=== PATIENT | male | born 1940 | race Caucasian/White ===

== ENCOUNTER 2016-10-23 07:00 | Observation (INO) | payer OTHER ==
--- NOTE | 2016-10-16 10:59 | GHP ---
[f rep st] HISTORY AND PHYSICAL DATE OF ADMISSION: 10/23/2016 HISTORY OF PRESENT ILLNESS: The patient returns to our office for further discussion regarding pain in his right inguinal region. The patient reports he lifted something heavy, felt a strain, and now his right inguinal area is sore to the touch. The pain has been resolving. He is noticing a palpable mass. The patient has a history of bilateral inguinal hernia repair in the remote history, and 2 years ago, underwent an open right inguinal hernia repair. ALLERGIES: No known drug allergies. PAST MEDICAL HISTORY: Coronary artery disease, hyperlipidemia, fatigue, shingles, tremor. PAST SURGICAL HISTORY: Cardiac catheterization, inguinal hernia repair, penile implant for Peyronie's disease, prostate surgery, shoulder surgery, skin tumor removal, arthroscopic knee surgery bilateral. MEDICATIONS: Aspirin, Crestor, Diovan, metoprolol, Plavix, Proctozone rectal cream. SOCIAL HISTORY: The patient is . Four kids. Nonsmoker. REVIEW OF SYSTEMS: He had a negative 10-point review of systems. PHYSICAL EXAM: GENERAL: Patient is an elderly male, in no apparent distress. HEAD AND NECK: Normocephalic, atraumatic. No masses. CHEST: CTA bilaterally. HEART: Regular rhythm, rate. ABDOMEN: Small right inguinal hernia, scrotal implant. EXTREMITIES: No lower extremity edema. Normal dorsalis pedis pulses to palpation. RADIOLOGY: CT of the abdomen and pelvis done at [facility] demonstrates a right direct inguinal hernia containing fat and a 2.3 cm fluid density structure that appears to be a small portion of herniated bladder. Nonspecific 6 mm left lower lobe nodule. Recommend followup CT scan in 36 months, bilateral renal cysts. IMPRESSION: Recurrent right inguinal hernia. RECOMMENDATION: Open right inguinal hernia repair was discussed with the patient in detail. Patient saw Dr. Eller. Risks reviewed include recurrent hernia, bleeding, hematoma, nerve injury. The patient wants to proceed with scheduling surgery for October 23, 2016. Patient received cardiac clearance from Dr. Castro. /[id number]/MODL MTDD
[~2016-10-23 07:00] MED LIST: ceFAZolin 2 GM/DEXTROSE 100 ML IV ONE
[2016-10-23] MEDS ORDERED: LIDOCAINE 1% 5 ML SDV ONE (07:31)
[2016-10-23] MEDS ORDERED: LR 1,000 ML IV ONE (08:04)
[2016-10-23] MEDS ORDERED: LIDOCAINE 1% 5 ML SDV ID PRN (08:04)
[2016-10-23 08:05] LABS: ADD DIFF? NO; ADD MORPH? NO; ADD SCAN? NO; ATYPICAL LYMPHOCYTE FLAG 30 (0-99); FRAGMENT RBC FLAG 0 (0-99); HEMATOCRIT 45.7 % (40.0-51.0); LEFT SHIFT FLG 0 (0-99); LIPEMIA HEMOLYSIS FLAG 90 (0-99); MEAN CELL HEMOGLOBIN 31.6 pg (27.9-34.1); MEAN CELL VOLUME 90.3 fL (81.5-99.8); MEAN PLATELET VOLUME 10.1 fL (8.7-11.7); PLATELET CLUMPS FLAG 0 (0-99); PLATELET COUNT 171 10^3/uL (150-400); RED BLOOD CELL COUNT 5.06 10^6/uL (4.40-6.38); RED CELL DISTRIBUTION WIDTH 13.1 % (11.5-15.2)
[2016-10-23] MEDS ORDERED: BUPIVACAINE 0.5% 30 ML SDV ONE ×2 (08:11→08:34)
[2016-10-23] MEDS ORDERED: SODIUM BICARBONATE 10 MEQ/10 ML SYR IVP ONE (08:34)
[2016-10-23] MEDS ORDERED: LIDOCAINE 1% 30 ML SDV ONE (08:35)
[2016-10-23] MEDS ORDERED: PROPOFOL/EMULSION 500 MG/50 ML BOTTLE IV ONE (08:38)
[2016-10-23] MEDS ORDERED: epHEDrine SULFATE 10 MG/ML SYR ONE (09:12)
[2016-10-23] MEDS ORDERED: THROMBIN (RECOMBINANT) 5,000 UNIT VIAL TP ONE (09:41)
[2016-10-23] MEDS ORDERED: PROPOFOL 200 MG/20 ML VIAL ONE (09:57)
[2016-10-23] MEDS ORDERED: HYDROCODONE/APAP 5/325 TAB ONE (12:35)
[2016-10-23] MEDS ORDERED: HYDROmorphONE/DILAUDID 1 MG/ML SYR IVP PRN (14:14)
[2016-10-23] MEDS ORDERED: ONDANSETRON 4 MG/2 ML VIAL IVP PRN (14:14)
[2016-10-23] MEDS ORDERED: ACETAMINOPHEN 325 MG TAB PO PRN (14:14)
[2016-10-23] MEDS ORDERED: D5W 1/2 NS W/ 20 KCl/L 1,000 ML IV SCH (14:15)
[2016-10-23] MEDS ORDERED: fentaNYL 100 MCG/2 ML INJ ONE (15:52)
[2016-10-23] MEDS: HYDROCODONE/APAP 5/325 TAB PO PRN (21:05)
[2016-10-23] MEDS ORDERED: POLYETHYLENE GLYCOL 3350 17 GM PKT PO ONE (21:30)
[2016-10-24] MEDS: HYDROCODONE/APAP 5/325 TAB PO PRN ×2 (01:18→09:38)
[2016-10-24 05:46] LABS: HEMATOCRIT 37.5 % (40.0-51.0); HEMOGLOBIN 13.2 g/dL (13.7-17.5)
[2016-10-24] MEDS ORDERED: POLYETHYLENE GLYCOL 3350 17 GM PKT PO PRN (06:30)
[2016-10-24] MEDS ORDERED: LACTULOSE 20 GM/30 ML UDCUP PO PRN (06:30)
[2016-10-24] MEDS ORDERED: MAGNESIUM HYDROXIDE 30 ML UDCUP PO PRN (06:30)
[2016-10-24] MEDS ORDERED: BISACODYL 10 MG SUPP PR PRN (06:30)
[2016-10-24 08:05] VITALS: RESP 16; TEMP 98.2; O2SAT 94
--- NOTE | 2016-10-24 08:12 | SOAPPROG ---
[id number] 08:11 10/25/16 08:05 Objective: Vital Signs Temp Pulse Resp BP Pulse Ox 36.8 C 63 16 107/60 94 10/24/16 08:00 10/24/16 08:00 10/24/16 08:00 10/24/16 08:00 10/24/16 08:00 Laboratory Results 10/24/16 05:08 10/23/16 10/24/16 10/25/16 05:59 05:59 05:59 Intake Total 2400 Output Total 2460 200 Balance -60 -200 ICD10 Worksheet Patient Problems: Problems Problem Status Diagnosed Internal bleeding hemorrhoids Acute
[2016-10-24] MEDS ORDERED: SENNOSIDES/DOCUSATE SODIUM TAB PO SCH (09:00)
[2016-10-24 11:27] VITALS: BP 102/62; PULSE 68
--- NOTE | 2016-10-31 14:07 | GDS ---
[f rep st] DISCHARGE SUMMARY DISCHARGE DIAGNOSES: 1. Recurrent right inguinal hernia with pain. 2. Postoperative swelling. 3. Urinary retention. OTHER DIAGNOSES: Include history of coronary artery disease, hyperlipidemia, fatigue, shingles, trem or, cardiac catheterization, previous inguinal hernia repairs, prostate surgery, shoulder surgery, sk in excision, bilateral arthroscopic knee surgery, penile implant for Peyronie disease. CONSULTATION: Phone consultation with Dr. Gerard Navarro, the patient's urologist. HOSPITAL COURSE: The patient is a 75-year-old male with a symptomatic recurrent right inguinal herni a. He underwent open repair with Dr. Jeffy Eller. Mesh was used. The procedure was uncomplicated and he tolerated it well. In the recovery room, the patient developed some postoperative swelling at the site of his repair. O f note, he was on Plavix, and so there was concern for bleeding. He also had some urinary retention. It was decided to keep the patient overnight for observation. Dr. Gerard Navarro was consulted secondar y to his implant, and ultimately a 14-Greek catheter was placed easily bedside without event. Patient's swelling remained stable. His Ramey catheter was removed, at which time he was able to voi d spontaneously several times. He was eager to go home. DISCHARGE INSTRUCTIONS: The patient was discharged to home in stable condition with plans for outpat ient followup. All limitations were discussed prior to him going home. He was given permission to r estart his Plavix. /[id number]/MODL
--- NOTE | 2016-11-06 14:27 | GOP ---
[f rep st] OPERATIVE REPORT DATE OF OPERATION: 10/23/2016 SURGEON: Jeffy Eller MD ANESTHESIOLOGIST: Abel Ace MD PREOPERATIVE DIAGNOSIS: Recurrent right inguinal hernia. POSTOPERATIVE DIAGNOSIS: Recurrent right inguinal hernia. PROCEDURE PERFORMED: Open repair of recurrent right inguinal hernia. FINDINGS: The patient was found to have parapubic recurrent 2 cm and 1 cm defects. DESCRIPTION OF PROCEDURE: The patient was taken to the operating room where he received satisfactory spinal anesthesia by Dr. Ace. He was placed in supine position, prepped and draped in the usual s terile fashion. A transverse incision was made through his previous old scar. Careful dissection ex tended down through the subcutaneous tissue and down through the external oblique fascia. This was o pened through the external ring. Proximal and distal flaps were created. Cord was mobilized from th e floor of the canal. Dissection was somewhat difficult, having had a couple of surgeries in this gr oin before. Medially in the floor of the canal, defects were encountered. These were medial to the actual floor of the inguinal canal and sort of a parapubic area. Both areas were dissected free. A small 1 cm defect with a small hernia sac and then a somewhat larger 2 cm area with a much larger rec urrent hernia sac were identified. These were dissected free. The contents were reduced. The defec ts were then closed with interrupted 0 Surgilon [id number] sutures. The wound was infiltrated w ith 0.5% Marcaine. The inguinal floor was then reinforced with a ProGrip polyester mesh, securing th e mesh down to the pubic tubercle, to the internal oblique fashion, and to the shelving edge of the i nguinal ligament. The patch which was slit laterally to pass some around the cord structures, and th en it was all anchored in place with interrupted 0 Surgilon. The wounds were infiltrated with 0.5% M arcaine. The cord and nerve were replaced in their anatomic positions. The external oblique was nohelia sed with a running 2-0 Vicryl suture, the subcu with 3-0 Vicryl, and the skin with a 4-0 Monocryl sub cuticular stitch. He tolerated the procedure quite well. Blood loss was less than 20 cc. There wer e no complications. ASSESSMENT: Jenn Bertrand PA-C /[id number]/[facility] [place]
== END 2016-10-24 14:40 | disposition home or self-care (01) ==
LOC: FSGY 07:00 → F3E 18:18
PROVIDERS: ADMIT Surgery; ATTEND Surgery
PROC: 0YU50JZ Supplement Right Inguinal Region with Synthetic Substitute, Open Approach (ICD-10-PCS; principal; 2016-10-23 09:00)
DX: K40.31 Unilateral inguinal hernia, with obstruction, without gangrene, recurrent (principal); I25.10 Atherosclerotic heart disease of native coronary artery without angina pectoris; I10 Essential (primary) hypertension; G47.33 Obstructive sleep apnea (adult) (pediatric)
CPT/HCPCS: 49520; 88302; C1781; G0378; J0690; J2704; J3010

== ENCOUNTER 2016-12-08 10:58 | Observation (INO) | payer OTHER ==
[2016-12-08] MEDS ORDERED: LR 1,000 ML IV ONE (11:55)
[2016-12-08] MEDS ORDERED: LIDOCAINE 1% 5 ML SDV ID PRN (11:55)
[2016-12-08] MEDS ORDERED: ceFAZolin 2 GM/DEXTROSE 100 ML IV ONE (12:00)
[2016-12-08] MEDS ORDERED: BUPIVACAINE 0.5% 30 ML SDV ONE (12:44)
[2016-12-08] MEDS ORDERED: SKIN ADHESIVE (DERMABOND) 1 EACH TP ONE (12:44)
[2016-12-08] MEDS ORDERED: ONDANSETRON DISINTEGRATING 4 MG TAB PO PRN (12:57)
[2016-12-08] MEDS ORDERED: PROMETHAZINE HCL 25 MG SUPPR PR PRN (12:57)
[2016-12-08] MEDS ORDERED: CYCLOBENZAPRINE 10 MG TAB PO PRN (12:57)
[2016-12-08] MEDS ORDERED: diphenhydrAMINE 25 MG CAP PO PRN (12:57)
[2016-12-08] MEDS ORDERED: ONDANSETRON 4 MG/2 ML VIAL IVP PRN (12:57)
[2016-12-08] MEDS ORDERED: METOCLOPRAMIDE 10 MG/2 ML VIAL IVP PRN (12:57)
[2016-12-08] MEDS ORDERED: oxyCODONE IR 5 MG TAB PO PRN (12:57)
[2016-12-08] MEDS ORDERED: TEMAZEPAM 15 MG CAP PO PRN (12:57)
[2016-12-08] MEDS ORDERED: DIPHENOXYLATE/ATROPINE LOMOTIL 1 TAB PO PRN (12:57)
[2016-12-08] MEDS ORDERED: LR 1,000 ML IV SCH (13:00)
[2016-12-08] MEDS ORDERED: fentaNYL 100 MCG/2 ML INJ ONE ×2 (13:01→15:07)
[2016-12-08] MEDS ORDERED: PROPOFOL/EMULSION 500 MG/50 ML BOTTLE IV ONE (13:01)
[2016-12-08] MEDS ORDERED: ROPIVACAINE HCL 150 MG/30 ML INJ ONE (13:01)
[2016-12-08] MEDS ORDERED: LIDOCAINE 2% 5 ML SDV ONE (13:07)
[2016-12-08] MEDS ORDERED: ceFAZolin 1 GM VIAL ONE (13:54)
[2016-12-08] MEDS ORDERED: DEXAMETHASONE 4 MG/ML VIAL ONE ×2 (14:08)
[2016-12-08] MEDS ORDERED: KETOROLAC 30 MG/1 ML SDV ONE (14:15)
--- NOTE | 2016-12-08 16:31 | GOP ---
[f rep st] OPERATIVE REPORT DATE OF OPERATION: 12/08/2016 SURGEON: Thee Peoples MD INS[employer]ANCE [employer]ENSE PARALEGAL: Randolph Fernandes SA. ANESTHESIA: Spinal and popliteal block with mild sedation. PREOPERATIVE DIAGNOSIS: Right crossover toe deformity, hallux valgus interphalangeus, hammertoes, a nd metatarsalgia. POSTOPERATIVE DIAGNOSIS: Right crossover toe deformity, hallux valgus interphalangeus, hammertoes, and metatarsalgia. PROCEDURE PERFORMED: 1. Right great toe Marcus osteotomy. 2. Right 2, 3, 4, and 5 hammertoe corrections. 3. Right 2nd and 3rd shortening metatarsal osteotomies. 4. Right 2nd and 3rd metatarsal capsulotomies. FINDINGS: SPECIMENS: None. ESTIMATED BLOOD LOSS: 20 mL. INDICATIONS: A 76-year-old male with symptomatic crossover toe deformity and previous forefoot surg olya, experiencing pain and rubbing in shoe wear. He had failed conservative management and elected to proceed with operative treatment. Informed consent obtained and all questions answered. He was marked preoperatively. DESCRIPTION OF PROCEDURE: He was consented in the clinic. We discussed risks of nonunion, malunion , under correction, over correction, recurrence of deformity, new deformity, continued pain, infecti on, wound complications, and he elected to proceed. Informed was obtained. All questions were answ ered. He was marked preoperatively. He was taken to the operative suite. Popliteal block and spinal anesthesia were administered per An esthesia. He was given 2 g of Ancef. Additionally, he was given another gram before the start of t he case as the initial dose of Ancef had been greater than 30 minutes due to the 2 blocks. The time -out was performed verifying the site, side, and location, with agreement of the team. He was steri mya prepped and draped in the normal fashion. His tourniquet was inflated to 250 mmHg with the Esm arch. Incision was made medially over the hallux and dissected down to this excising only a small p ortion of the capsule. I then exposed the 2nd and 3rd metatarsal heads through the old incision and had to work laterally for the 3rd metatarsal head. Lengthened the extensor tendons and performed c apsulotomies of 2 and 3. I exposed the 2nd mallet toe as well as the 4th hammertoe sharply. I then used a sagittal saw to do the mallet toe correction on 2 and then the hammertoe corrections on 3, 4 , and 5. I then marked my Marcus osteotomy site and used the saw to remove a small wedge of bone. Cl osed this site medially and then placed 2 screws across this. The small gap that was still present more dorsally was filled with some of the residual bone from the wedge. Overall, I did feel a good correction was obtained and this was confirmed radiographically. I then made an osteotomy of the 2n d metatarsal head and rotated this back as I felt this was malrotated on the preoperative x-ray. I then performed a shortening osteotomy in a Caio type fashion on 3. I then held these in compression , held these with 2 screws each, snap-off ready. I then pinned all the hammertoes antegrade followe d by retrograde starting with the 2nd one and checked this radiographically and clinically and liked the correction. Tourniquet was released. The wounds were thoroughly irrigated. The toes did have good capillary refill. I closed this with 0 Vicryl in the capsule of the great toe to achieve dioni tional correction, then 2-0 Vicryl and 3-0 Vicryl in the wounds and then 3-0 and 4-0 nylon as well a s a Monocryl medially, Dermabond. He was placed in a sterile dressing and taken to PACU in stable c ondition. IMPLANTS: Two Arthrex 2.5 headless compression screws and 4 snap-off screws. COMPLICATIONS: None. DRAINS: None. CONDITION: Stable. /[id number]/MODL
[2016-12-08] MEDS: ACETAMINOPHEN 325 MG TAB PO SCH (18:12)
[2016-12-08] MEDS: FAMOTIDINE 20 MG TAB PO SCH (20:55)
[2016-12-08] MEDS: ROSUVASTATIN CALCIUM 40 MG TAB PO SCH ×2 (20:56→20:58)
[2016-12-08] MEDS ORDERED: ASPIRIN 81 MG CHEWABLE TAB PO SCH (21:00)
[2016-12-08] MEDS ORDERED: METOPROLOL SUCCINATE XR 25 MG TAB PO SCH (21:00)
[2016-12-08] MEDS: ceFAZolin 2 GM/DEXTROSE 100 ML IV SCH (21:22)
[2016-12-08] MEDS: PRIMIDONE 50 MG TAB PO SCH (21:41)
[2016-12-09] MEDS: ACETAMINOPHEN 325 MG TAB PO SCH ×3 (01:45→05:41)
[2016-12-09 04:16] VITALS: RESP 18
[2016-12-09] MEDS: ceFAZolin 2 GM/DEXTROSE 100 ML IV SCH (05:42)
--- NOTE | 2016-12-09 07:44 | SOAPPROG ---
SOAP Progress Note Assessment/Plan: Assessment: s/p left forefoot correction Plan: [place] out d/c home heel wt bearing 12/09/16 07:43 Subjective: minimal pain Objective: Vital Signs Temp Pulse Resp BP Pulse Ox 36.6 C 59 L 18 122/69 H 96 12/09/16 04:15 12/09/16 04:15 12/09/16 04:15 12/09/16 04:15 12/09/16 04:15 12/08/16 12/09/16 12/10/16 05:59 05:59 06:59 Intake Total 2915 Output Total 1775 Balance 1140 dressing cdi foot numb toes with good cap refill ICD10 Worksheet Patient Problems: Problems Problem Status Onset Internal bleeding hemorrhoids Acute
[2016-12-09 07:48] VITALS: BP 120/70; PULSE 52; TEMP 98.5; O2SAT 95
--- NOTE | 2016-12-09 08:08 | GDS ---
[f rep st] DISCHARGE SUMMARY REASON FOR HOSPITALIZATION: Left forefoot correction. HOSPITAL COURSE: The patient was admitted for observation after a left forefoot correction with Gerald n and hammertoe procedures and osteotomies. A Ramey catheter was placed for surgery and was not bijal en out until the morning of discharge due to multiple difficulties with urinary retention and urolog ic problems in the past. He tolerated this well and PFO catheter was removed. His pain was control led, and his foot was still somewhat numb from the block at the time of discharge. Met criteria for discharge. CONDITION ON DISCHARGE: Good. CONSULTING PHYSICIANS: None. PROCEDURES: Are the above forefoot correction surgery, Marcus, 2 through 5 hammertoes, 2 and 3 shorte lucio metatarsal osteotomies. DISPOSITION: Home. DISCHARGE DIET: He was sent out on a regular diet. DISCHARGE INSTRUCTIONS: He was sent out heel weightbearing in his boot. He will elevate and ice th is aggressively. Take pain meds. He was given prescriptions in the clinic for oxycodone for pain, Ult beau and Zofran. He will resume his previous home medications including his Brilinta and aspirin. T his will serve as any DVT prophylaxis he may require. He did have 1 dose of Lovenox in the hospital . This will not be continued as an outpatient. He will wear JANETTE hose. He will call or come back t o the hospital if he has any chest pain, shortness of breath, calf or leg swelling, increasing pain, wound drainage or other problems. He will follow up with me next week, on December 14. /[id number]/MODL
[2016-12-09] MEDS: FAMOTIDINE 20 MG TAB PO SCH (08:29)
[2016-12-09] MEDS: PRIMIDONE 50 MG TAB PO SCH (08:37)
[2016-12-09] MEDS ORDERED: ENOXAPARIN 40 MG/0.4 ML SYR SC SCH (09:00)
[2016-12-09] MEDS ORDERED: CHOLECALCIFEROL VIT D3 1,000 UNITS TAB PO SCH (09:00)
[2016-12-09] MEDS ORDERED: VALSARTAN 160 MG TAB PO SCH (09:00)
[2016-12-09] MEDS ORDERED: Ticagrelor [Brilinta] 60 MG PO SCH (21:00)
== END 2016-12-09 12:01 | disposition home or self-care (01) ==
LOC: F3E 10:58 → F3N 16:57
PROVIDERS: ADMIT Orthopaedic Surgery; ATTEND Orthopaedic Surgery
PROC: 0SSP04Z Reposition Right Toe Phalangeal Joint with Internal Fixation Device, Open Approach (ICD-10-PCS; principal; 2016-12-08 12:30)
PROC: 0QBQ0ZZ Excision of Right Toe Phalanx, Open Approach (ICD-10-PCS; principal; 2016-12-08 12:30)
PROC: 0SNM0ZZ Release Right Metatarsal-Phalangeal Joint, Open Approach (ICD-10-PCS; principal; 2016-12-08 12:30)
DX: M20.11 Hallux valgus (acquired), right foot (principal); M20.41 Other hammer toe(s) (acquired), right foot; M77.41 Metatarsalgia, right foot; N99.89 Other postprocedural complications and disorders of genitourinary system; R33.9 Retention of urine, unspecified; Q66.50 Congenital pes planus, unspecified foot; I25.10 Atherosclerotic heart disease of native coronary artery without angina pectoris; E78.5 Hyperlipidemia, unspecified; I10 Essential (primary) hypertension; G47.33 Obstructive sleep apnea (adult) (pediatric); Z95.5 Presence of coronary angioplasty implant and graft; Z82.49 Family history of ischemic heart disease and other diseases of the circulatory system
CPT/HCPCS: 28270; 28285; 28298; 97116; 97162; 97165; C1713; C1769; G0378; J0690; J1100; J1650; J1885; J2704; J2795; J3010

== ENCOUNTER 2017-09-03 05:47 | Inpatient (IN) | payer OTHER ==
--- NOTE | 2017-09-02 14:59 | GHP ---
[f rep st] PREOP HISTORY AND PHYSICAL DATE OF ADMISSION: 09/03/2017 HISTORY: The patient is a 76-year-old male, who presents with left knee tricompartment osteoarthriti s. He has knee pain predominantly medially, some swelling and stiffness. This has limited some addison on, impacts his gait and impacts his activities of daily living and exercise. Multiple conservative measures have been done through the years with this knee. These have included exercises, viscosupple mentation, knee arthroscopy and medial torts law professor brace. His symptoms have progressed, and we will pro ceed now with a left total knee arthroplasty. PAST MEDICAL HISTORY: Remarkable for coronary artery disease, and he has stents. He has elevated ch olesterol, a remote history of infectious hepatitis. He has had a hernia repair. He has a history o f hypertension, migraines, prostate disease and sleep apnea, not requiring CPAP machine. PAST SURGICAL HISTORY: Includes right and left shoulders, right and left knee scopes. He has had [employer] worked on. He has had a wrist procedure as well. SOCIAL HISTORY: He has never been a smoker. MEDICATIONS: Include rosuvastatin 40 mg p.o. daily, metoprolol 25 mg p.o. daily, valsartan 160 mg p. o. daily, aspirin 81 mg p.o. daily, primidone 50 mg b.i.d. He is using multiple supplements as well. Of note, he has stopped his aspirin as well as the Brilinta 6 days before surgery. PROVIDERS: His cut press operator is Dr. Ascencion Castro. His jack setter is Dr. Oleg Marshall. REVIEW OF SYSTEMS: Positive for his coronary artery disease. PHYSICAL EXAM: GENERAL: The patient is a well-developed, well-nourished male in no apparent distres s. HEAD AND NECK: Normocephalic, atraumatic. CHEST: Clear. CARDIOVASCULAR: Regular rate and rhy thm. ABDOMEN: Soft. NEUROLOGIC: He is alert and oriented x3. EXTREMITIES: The left knee shows a slight flexion contracture, has a small effusion. Flexion to about 125 degrees. He has a tendency toward varus malalignment. He has some tenderness throughout the joint line, especially medially. S kin is intact. Neurovascular exam intact. IMAGING AND X-RAYS: He has had multiple x-rays through the years and most recent MRI in August showing tricompartment osteoarthritis, cartilage thinning and fissuring, complete loss of articular cartilage in the weightbearing medial compartment, as well as subchondral bone marrow edema. IMPRESSION: Left knee tricompartment osteoarthritis. PLAN: Left total knee arthroplasty. The benefits and risks of surgery have been reviewed. He under stands that the risks include infection, damage to blood vessels or nerves, failure or loosening of c omponents, blood clot in the leg or lungs, bleeding and need for transfusion. He has appropriately s topped his anticoagulation and supplements prior to the surgical procedure. This was discussed with his cut press operator, Dr. Castro. I have also discussed with Dr. Navarro management of Ramey catheter. We will place a Ramey catheter before surgery once he is anesthetized. He has had problems with urin trini retention and urethral issues in the past. We can discontinue the Ramey the next morning. /[id number]/MODL
[~2017-09-03 05:47] MED LIST changes: +TRANEXAMIC ACID 1 MG in NS 100 ML IV ONE; -ceFAZolin 2 GM/DEXTROSE 100 ML IV ONE
[2017-09-03] MEDS ORDERED: FAMOTIDINE 20 MG TAB PO ONE (05:54)
[2017-09-03] MEDS ORDERED: ceFAZolin 2 GM/SWFI 2 GM/20 ML SYR IVP ONE (05:54)
[2017-09-03] MEDS ORDERED: ACETAMINOPHEN 325 MG TAB PO ONE (05:54)
[2017-09-03] MEDS ORDERED: DEXAMETHASONE 4 MG/ML VIAL IVP ONE (05:54)
[2017-09-03] MEDS ORDERED: NS 1,000 ML IV ONE (05:56)
[2017-09-03] MEDS ORDERED: LIDOCAINE 1% 2 ML INJ ID PRN (05:56)
[2017-09-03] MEDS ORDERED: ROPIVACAINE 0.2% 80 MG, EPINEPHrine 0.2 MG, KETOROLAC TROMETHAMINE 30 MG in BAG 0 ML IU ONE (06:00)
[2017-09-03] MEDS ORDERED: POVIDONE-IODINE 20 ML in SODIUM CL IRRIG SOLUTION 500 ML IRR ONE (06:00)
[2017-09-03] MEDS ORDERED: TRANEXAMIC ACID 725 MG in NS 100 ML IV ONE (06:00)
[2017-09-03] MEDS ORDERED: ceFAZolin 1 GM/5 ML SYR ONE (06:35)
--- NOTE | 2017-09-03 07:01 | PDANEPAE ---
ANE History of Present Illness L TKA ANE Past Medical History - Cardiovascular History Hx Hypertension: Yes Hx Arrhythmias: No Hx Coronary Artery / Peripheral Vascular Disease: Yes Hx CHF / Valvular Disease: No Cardiovascular History Comment: NO CP. STENTS X 3- ' X1, '-X 1, RESTENOSED 07- X1. HIGH CHOL - Pulmonary History Hx COPD: No Hx Asthma/Reactive Airway Disease: No Hx Recent Upper Respiratory Infection: No Hx Oxygen in Use at Home: No Hx Sleep Apnea: Yes Sleep Apnea Screening Result - Last Documented: Positive Pulmonary History Comment: DENIES SOB W STAIRS - Neurologic History Hx Cerebrovascular Accident: No Hx Seizures: No Hx Dementia: No Neurologic History Comment: SL TREMOR - Endocrine History Hx Diabetes: No - Renal History Hx Renal Disorders: Yes Renal History Comment: PENILE IMPLANT - Liver History Hx Hepatic Disorders: Yes Hepatic History Comment: age 14-infectious hepatitis A. No problems now. 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 LOW FAT DIET - Other Health History Other Health History: PERM BRIDGE LOWER. BRUISES EASILY- ON BRILINTA. left xavier-reddened area-PCP aware. - Chronic Pain History Chronic Pain: Yes - Surgical History Prior Surgeries: Open R inguinal hernia 10-23-16. Laparoscopic R inguinal hernia 02-11,. TURP. RAJIV CATARACTS. RTC REP RAJIV SHOULDERS. RAJIV KNEE SCOPES. ANGIOPLASTIES X 3 -STENTS X3 TOTAL. MOHS FOR SQUAMOUS CELL. PENILE IMPLANT. WISDOM TEETH. TONSILS ANE Review of Systems Review of Systems: - Exercise capacity METS (RN): 4 METS ANE Patient History - Allergies Allergies/Adverse Reactions: SEASONAL Allergy (Mild, Uncoded 02/24/14 13:53) Other-Enter Comments - Home Medications Home Medications: Aspirin [Aspirin 81mg (*)] 81 mg PO HS 10/20/14 [Last Taken 08/27/17] Herbals/Supplements -Info Only 1 ea PO DAILY 10/20/14 [Last Taken 08/28/17] Metoprolol Succinate Xr [Toprol Xl 25 mg (*)] 25 mg PO HS 01/20/15 [Last Taken 09/02/17 19:00] Multivitamins,Ther W-Minerals [Therapeutic Vitamin W-Minerals] 1 each PO DAILY 10/20/14 [Last Taken 08/28/17] Eastman-3 Fatty Acids [Fish Oil 1000 mg (*)] 2,000 mg PO DAILY 10/20/14 [Last Taken 08/28/17] Primidone [Mysoline] 75 mg PO BID 10/20/14 [Last Taken 09/02/17 19:00] Rosuvastatin Calcium 40 mg PO HS 10/23/16 [Last Taken 09/02/17 19:00] Valsartan [Diovan (*)] 160 mg PO DAILY 10/23/16 [Last Taken 09/02/17 10:00] Cholecalciferol Vit D3 [Vitamin D3 (*)] 4,000 units PO DAILY 12/05/16 [Last Taken 08/28/17] Niacin [Niacin 500 mg (*)] 2,000 mg PO HS 12/05/16 [Last Taken 08/28/17] Eastman-3 Fatty Acids [Fish Oil 1000 mg (*)] 1,000 mg PO HS 09/02/17 [Last Taken 08/28/17] Ticagrelor [Brilinta] 60 mg PO BID 09/02/17 [Last Taken 08/28/17] - NPO status NPO Since - Liquids (Date): 09/02/17 NPO Since - Liquids (Time): 18:00 NPO Since - Solids (Date): 09/02/17 NPO Since - Solids (Time): 18:00 - Smoking Hx Smoking Status: Never smoked - Family Anes Hx Family Hx Anesthesia Complications: hx alzhiemers complication with anesthesia. ANE Labs/Vital Signs - Vital Signs Blood Pressure: 107/72 Heart Rate: 71 Respiratory Rate: 16 O2 Sat (%): 96 Height: 175.26 cm Weight: 72.575 kg ANE Physical Exam - Airway Neck exam: FROM Mallampati Score: Class 2 - Pulmonary Pulmonary: no respiratory distress - Cardiovascular Cardiovascular: regular rate and rhythym - ASA Status ASA Status: III ANE Anesthesia Plan Anesthesia Plan: MAC, spinal Regional Anesthesia: adductor canal FNB
[2017-09-03] MEDS ORDERED: PROPOFOL/EMULSION 500 MG/50 ML BOTTLE IV ONE ×2 (07:03→08:39)
[2017-09-03] MEDS ORDERED: PROPOFOL 200 MG/20 ML VIAL ONE (07:05)
[2017-09-03] MEDS ORDERED: LIDOCAINE 2% 5 ML SDV ONE (07:06)
[2017-09-03] MEDS ORDERED: ROPIVACAINE HCL 150 MG/30 ML INJ ONE (09:01)
[2017-09-03] MEDS ORDERED: METOCLOPRAMIDE 10 MG/2 ML VIAL IVP PRN (09:46)
[2017-09-03] MEDS ORDERED: LACTULOSE 20 GM/30 ML UDCUP PO PRN (09:46)
[2017-09-03] MEDS ORDERED: CYCLOBENZAPRINE 10 MG TAB PO PRN (09:46)
[2017-09-03] MEDS ORDERED: MAGNESIUM HYDROXIDE 30 ML UDCUP PO PRN (09:46)
[2017-09-03] MEDS ORDERED: POLYETHYLENE GLYCOL 3350 17 GM PKT PO PRN (09:46)
[2017-09-03] MEDS ORDERED: diphenhydrAMINE 25 MG CAP PO PRN (09:46)
[2017-09-03] MEDS ORDERED: ONDANSETRON 4 MG/2 ML VIAL IVP PRN (09:46)
[2017-09-03] MEDS ORDERED: KETOROLAC 30 MG/1 ML SDV IVP PRN (09:46)
[2017-09-03] MEDS ORDERED: PROMETHAZINE HCL 25 MG SUPPR PR PRN (09:46)
[2017-09-03] MEDS ORDERED: DIPHENOXYLATE/ATROPINE LOMOTIL 1 TAB PO PRN (09:46)
[2017-09-03] MEDS ORDERED: BISACODYL 10 MG SUPP PR PRN (09:46)
[2017-09-03] MEDS ORDERED: TEMAZEPAM 15 MG CAP PO PRN (09:46)
[2017-09-03] MEDS ORDERED: ONDANSETRON DISINTEGRATING 4 MG TAB PO PRN (09:46)
[2017-09-03] MEDS ORDERED: PROMETHAZINE HCL 25 MG/ML INJ IVP PRN (09:46)
--- NOTE | 2017-09-03 10:00 | POSTANESTH ---
Post Anesthetic Evaluation Cardiovascular Status: Normal, Stable Respiratory Status: Normal, Stable Level of Consciousness/Mental Status: Can Participate in Eval, Mildly Sleepy, Arousable Pain Control: Adequate, Prn Tx Ordered Nausea/Vomiting Control: Adequate, Prn Tx Ordered Complications Possibly Related to Anesthesia: None Noted
[2017-09-03] MEDS: LR 1,000 ML IV SCH ×2 (11:17→19:42)
[2017-09-03] MEDS: ACETAMINOPHEN 325 MG TAB PO SCH ×3 (11:18→23:56)
[2017-09-03] MEDS: oxyCODONE IR 5 MG TAB PO PRN (11:18)
[2017-09-03] MEDS: ceFAZolin 2 GM/DEXTROSE 100 ML IV SCH ×2 (14:19→21:39)
--- NOTE | 2017-09-03 14:38 | GOP ---
[f rep st] OPERATIVE REPORT DATE OF OPERATION: 09/03/2017 SURGEON: Roel Grover MD HORSER UP: Sánchez Canchola, PEDROA, LSA. ANESTHESIA: Thee Krueger DO. PREOPERATIVE DIAGNOSIS: Left knee osteoarthritis. POSTOPERATIVE DIAGNOSIS: Left knee osteoarthritis. PROCEDURE PERFORMED: Left total knee arthroplasty. FINDINGS: SPECIMENS: Include excised bone. ESTIMATED BLOOD LOSS: Minimal. INDICATIONS: The patient is a 76-year-old male who presents with history, exam, previous x-rays, and MRI all consistent with severe left knee osteoarthritis that is tricompartment. He has tried multip le conservative measures through the years. This has included knee arthroscopy, viscosupplementation , and steroids, as well as hogshead mat inspector brace and physical therapy. He has significant knee pain impacti ng his quality of life and activities of daily living, so a left total knee arthroplasty is planned. DESCRIPTION OF PROCEDURE: Patient was taken to the operating room, and Dr. Krueger provided a spinal b lock. I did place a Ramey catheter because he has had previous urinary retention issues after surger y. That went easily. He received 2 g of IV Ancef. He received a preoperative dose of tranexamic ac id. He also received a dose later in the case. Tourniquet was fit high on the left thigh. The left leg was thoroughly prepped with chlorhexidine. The leg was draped out free in neutral rotation. We did a standard time-out. The limb was elevated, exsanguinated, and the tourniquet inflated to 275 m mHg. I made a longitudinal incision in the midline, dissected through subcutaneous tissue. I used a medial parapatellar arthrotomy. The patella was inverted. The patella was 25 mm thick, so I remove d 9 mm of cartilage and bone and sized the patella to a size 35. I drilled appropriate PEG holes, an d with the trial in place, this reestablished the thickness of the patella. I then flexed the knee, drilled a manager sterile hole in the distal femur, used an intramedullary alignment jig at 5 degrees valgus cu t. I initially made a neutral cut. I added a +2 cut to get an adequate bone resection. I sized thi s to a 7. The 7 cutting block was applied. I made anterior, posterior, and camphor cuts, as well as the notch cuts for this bi-cruciate stabilized knee. Size 7 was a good fit, front to back and side to side. Posterior and lateral retractors were placed. I used an extramedullary guide for the tibia . I adjusted posterior slope, rotation. I designed my cut to just skim underneath the arthritic med ial side. The cut was made. I sized the tibia at a 6. I dialed in its rotation. It was pinned, an d I completed the tibial prep. I did some soft tissue balancing on the distal MCL to balance out the joint space. A trial reduction with a 9 mm liner allowed full extension and excellent ligamentous s tability. All the components were then removed. All the surfaces were jet lavaged, irrigated with a ntibiotic solution. Cement was applied to the tibia and the tibial component was hammered into place . Likewise, cement mantle on the femoral component applied. Likewise, with the patellar component. Once the cement had hardened, I did trial reductions. A 9 mm still looked good, so I used a crossli nk poly 9 mm articular tray, and this was snapped easily into the tibial component. I used Betadine irrigation, then rinse this with some more antibiotic irrigation. The tourniquet was let down. The wound was dry. I did not use a drain. The arthrotomy was closed with 0 Mersilene, the subcutaneous tissue with 2-0 Monocryl, and the skin with alfonzo. Wound was dressed with Betadine-soaked Adaptic, 4 x 4, sterile Webril, and a long-leg Booker stocking. There were no complications. DRAINS: None. TOURNIQUET TIME: About 1 hour and 20 minutes. The patient was taken in stable condition to recovery. My ophthalmic surgical assistant was a medical necessity for this knee replacement. SUMMARY OF COMPONENTS: This is a [employer] bi-cruciate stabilized knee with an Oxiniu m femur. All components cemented. Crosslink poly articular insert. Femur size 7, tibia size 6, pat rigoberto 35, and the articular tray 9 mm. /[id number]/MODL
[2017-09-03] MEDS: ASPIRIN 325 MG TAB PO SCH (19:44)
[2017-09-03 19:58] VITALS: RESP 14; O2SAT 95
[2017-09-03] MEDS ORDERED: NIACIN 500 MG TAB PO SCH (21:00)
[2017-09-03] MEDS ORDERED: ROSUVASTATIN CALCIUM 40 MG TAB PO SCH (21:00)
[2017-09-03] MEDS ORDERED: METOPROLOL SUCCINATE XR 25 MG TAB PO SCH (21:00)
[2017-09-03] MEDS: FAMOTIDINE 20 MG TAB PO SCH (21:40)
[2017-09-03] MEDS: PRIMIDONE 50 MG TAB PO SCH (21:42)
[2017-09-03] MEDS: SENNOSIDES/DOCUSATE SODIUM TAB PO SCH (21:43)
[2017-09-04 04:18] VITALS: TEMP 97.8
[2017-09-04 05:08] LABS: HEMATOCRIT 36.2 % (40.0-51.0); HEMOGLOBIN 12.8 g/dL (13.7-17.5)
[2017-09-04] MEDS: ACETAMINOPHEN 325 MG TAB PO SCH (05:33)
[2017-09-04] MEDS: oxyCODONE IR 5 MG TAB PO PRN (06:37)
--- NOTE | 2017-09-04 08:07 | POSTANESTH ---
Post Anesthetic Evaluation Cardiovascular Status: Normal, Stable (Blake is resting in bed, states his knee is just starting to notice the pain, he has ambulated without difficulty, no apparent anesthetic complications)
--- NOTE | 2017-09-04 08:12 | SOAPPROG ---
SOAP Progress Note Assessment/Plan: Assessment: 09/04/17 POD#1, L TKA, pain controlled. Hct 36, xray looks good NVI Plan: 09/04/17 08:10 PT/OT then home, home PT, oxy, asa, restart Brilinta tomorrow Objective: Vital Signs Temp Pulse Resp BP Pulse Ox 36.6 C 51 L 14 112/64 95 09/04/17 04:17 09/04/17 04:17 09/04/17 04:17 09/04/17 04:17 09/04/17 04:17 Laboratory Results 09/04/17 04:15 09/03/17 09/04/17 09/05/17 05:59 05:59 05:59 Intake Total 0850 Output Total 3715 Balance 315 ICD10 Worksheet Patient Problems: Problems Problem Status Onset Internal bleeding hemorrhoids Acute
--- NOTE | 2017-09-04 08:21 | PDIAF ---
- Diagnosis Code Status: Full Code - Medication Management Discharge Medications: Medications to Continue on Transfer Aspirin [Aspirin 81mg (*)] 81 mg PO HS 10/20/14 [Last Taken 08/27/17] Herbals/Supplements -Info Only 1 ea PO DAILY 10/20/14 [Last Taken 08/28/17] Metoprolol Succinate Xr [Toprol Xl 25 mg (*)] 25 mg PO HS 10/20/14 [Last Taken 09/02/17 19:00] Multivitamins,Ther W-Minerals [Therapeutic Vitamin W-Minerals] 1 each PO DAILY 10/20/14 [Last Taken 08/28/17] [place]-3 Fatty Acids [Fish Oil 1000 mg (*)] 2,000 mg PO DAILY 10/20/14 [Last Taken 08/28/17] Primidone [Mysoline] 75 mg PO BID 10/20/14 [Last Taken 09/02/17 19:00] Rosuvastatin Calcium 40 mg PO HS 10/23/16 [Last Taken 09/02/17 19:00] Valsartan [Diovan (*)] 160 mg PO DAILY 10/23/16 [Last Taken 09/02/17 10:00] Cholecalciferol Vit D3 [Vitamin D3 (*)] 4,000 units PO DAILY 12/05/16 [Last Taken 08/28/17] Niacin [Niacin 500 mg (*)] 2,000 mg PO HS 12/05/16 [Last Taken 08/28/17] [place]-3 Fatty Acids [Fish Oil 1000 mg (*)] 1,000 mg PO HS 09/02/17 [Last Taken 08/28/17] Ticagrelor [Brilinta] 60 mg PO BID 09/02/17 [Last Taken 08/28/17] Aspirin [Aspirin 325 mg (*)] 325 mg PO DAILY tab 09/04/17 [Last Taken Unknown] oxyCODONE IR [Oxycodone Ir (*)] 5 - 10 mg PO Q4 PRN #30 tab 09/04/17 [Last Taken Unknown] Discharge Medications: Refer to the Discharge Home Medication list for PRN reason. - Orders Services needed: Physical Therapy Isolation Type: None Diet Recommendation: no restrictions on diet Diet Texture: Regular Texture Diet Booker Stockings Discontinue Date: continue 2 weeks Wound Care Instructions: keep wound covered, lukomed Sutures/[place] Site: left knee alfonzo, will remove in my office 2 weeks Activity/Weight Bearing Restrictions: WBAT, Full ROM - Follow Up Care Current Providers and Referrals: Delonte Marshall MD [Primary Care Provider] -
[2017-09-04 08:42] VITALS: BP 114/68; PULSE 57
[2017-09-04] MEDS ORDERED: VALSARTAN 160 MG TAB PO SCH (09:00)
--- NOTE | 2017-09-04 09:53 | ASMTCMCOM ---
CM Note CM Note Notes: Chart reviewed. Patient s/p left knee surgery. Patient medically cleared for discharge. Met with patient who is agreeable to Home Health Care. Referrals made and patient accepted by [facility] via [employer]. Address and phone number verified with patient. His daughter will be staying with him. Plan home with home PT. CM available should other needs arise. Date Signed: 09/04/2017 09:52 AM Electronically Signed By:Samia Ruelas RN
[2017-09-04] MEDS: ASPIRIN 325 MG TAB PO SCH (10:03)
[2017-09-04] MEDS: PRIMIDONE 50 MG TAB PO SCH (10:03)
[2017-09-04] MEDS: FAMOTIDINE 20 MG TAB PO SCH (10:03)
[2017-09-04] MEDS: SENNOSIDES/DOCUSATE SODIUM TAB PO SCH (10:05)
--- NOTE | 2017-09-04 12:18 | ASDISCHSUM ---
Discharge Information Plan Status:Home with Home Health Medically Cleared to Leave:09/03/2017 Discharge Date:09/04/2017 11:54 AM CM D/C Disposition:Home Health Service ADT D/C Disposition:Home Health Service Projected Discharge Date:09/04/2017 11:00 AM Transportation at D/C:Family Discharge Delay Reason: Follow-Up Date:09/04/2017 11:00 AM Discharge Slot: Final Diagnosis: Placement Information Referral Type:*Home Health Care Services Referral ID:[id number] Provider Name:[facility] ([facility]) Address 1:[address] [place] [address] Address 2: [facility]:[place] Selection Factors: State:[place] Patient Contact Information Contact Name:FAB Relationship:Son Address: Work Phone: City:[place] Alternate Phone: [facility] Code:[place] Email: Financial Information Financial Class:Medicare Advantage Plans Primary Plan Desc:[employer] GEORGETTE MONTALVO MEDICARE Primary Plan Number:[id number] Secondary Plan Desc: Secondary Plan Number: Assessment Information LACE LACE Length of stay for Answers: Less than 1 day current admission Acuity / Level of Care Answers: No. Emergency dept visits in Answers: 0 last 6 months Date Signed: 09/04/2017 09:47 AM Electronically Signed By:Samia Ruelas RN Case Management Discharge Plan Note Case Management Discharge Discharge Order Complete? Answers: Yes Patient to Obtain Answers: Independently Medications Transportation Arranged Answers: Family/Friends Case Management Transport Answers: Yes Form Complete Faxed Final Orders Answers: Yes Agency/Facility Transfer Answers: Yes Notes: [facility] Report Printed & Faxed to Receiving Agency Family Notified Answers: Yes [facility] CM Progress Note CM Note CM Note Notes: Chart reviewed. Patient s/p left knee surgery. Patient medically cleared for discharge. Met with patient who is agreeable to Home Health Care. [facility]errals [facility] and [facility] [employer]. Address and phone number verified with patient. His daughter will be staying with him. Plan home with home PT. CM available should other needs arise. Date Signed: 09/04/2017 09:52 AM Electronically Signed By:Saima Ruelas RN Intervention Information
== END 2017-09-04 11:54 | disposition home health service (06) | DRG 470 ==
LOC: F3N 05:47
PROVIDERS: ADMIT Orthopaedic Surgery; ATTEND Orthopaedic Surgery
PROC: 0SRD0J9 Replacement of Left Knee Joint with Synthetic Substitute, Cemented, Open Approach (ICD-10-PCS; principal; 2017-09-03 07:15)
DX: M17.12 Unilateral primary osteoarthritis, left knee (principal); I25.10 Atherosclerotic heart disease of native coronary artery without angina pectoris; Z95.5 Presence of coronary angioplasty implant and graft; E78.00 Pure hypercholesterolemia, unspecified; I10 Essential (primary) hypertension; G43.909 Migraine, unspecified, not intractable, without status migrainosus; G47.30 Sleep apnea, unspecified
CPT/HCPCS: 97116-GP; 97161-GP; 97165-GO; 97530-GP; C1713; G8987-GO-CI; G8988-GO-CI; G8989-GO-CI; J0171; J0690; J1100; J1885; J2704; J2795

== ENCOUNTER 2018-01-22 13:40 | Observation (INO) | payer OTHER ==
--- NOTE | 2018-01-22 14:16 | EDPHY ---
H & P Stated Complaint: leg leg fx, sent for admission Time Seen by Provider: 01/22/18 14:06 HPI/ROS: CHIEF COMPLAINT: Left knee pain HISTORY OF PRESENT ILLNESS: The patient is a 77-year-old man who recently had his left knee replaced. Today he was walking his dog and decided to try and jump crossed a ditch but it was wet any fell. He presented to his orthopedist Dr. Grover who evaluated him with x-rays but did not see any abnormalities. Sent him here for CT imaging where was found that he has a vertical condyle fracture of the femur. He was then sent to the ER. REVIEW OF SYSTEMS: Constitutional: denies: chills, fever, recent illness, recent injury EENTM: denies: blurred vision, double vision, nose congestion Respiratory: denies: cough, shortness of breath Cardiac: denies: chest pain, irregular heart rate, lightheadedness, palpitations Gastrointestinal/Abdominal: denies: abdominal pain, diarrhea, nausea, vomiting, blood streaked stools Genitourinary: denies: dysuria, frequency, hematuria, pain Musculoskeletal: See HPI Skin: denies: lesions, rash, jaundice, bruising Neurological: denies: headache, numbness, paresthesia, tingling, dizziness, weakness Hematologic/Lymphatic: denies: blood clots, easy bleeding, easy bruising Immunologic/allergic: denies: HIV/AIDS, transplant EXAM: GENERAL: Well-appearing, well-nourished and in no acute distress. HEAD: Atraumatic, normocephalic. EYES: Pupils equal round and reactive to light, extraocular movements intact, sclera anicteric, conjunctiva are normal. ENT: TMs normal, nares patent, oropharynx clear without exudates. Moist mucous membranes. NECK: Normal range of motion, supple without lymphadenopathy or JVD. LUNGS: Breath sounds clear to auscultation bilaterally and equal. No wheezes rales or rhonchi. HEART: Regular rate and rhythm without murmurs, rubs or gallops. ABDOMEN: Soft, nontender, normoactive bowel sounds. No guarding, no rebound. No masses appreciated. BACK: No CVA tenderness, no spinal tenderness, step-offs or deformities EXTREMITIES: Left knee with significant swelling and tenderness, no pain when lying still. Normal pulses and sensation distally. NEUROLOGICAL: Cranial nerves II through XII grossly intact. Normal speech, normal gait. 5/5 strength, normal movement in all extremities, normal sensation PSYCH: Normal mood, normal affect. SKIN: Warm, dry, normal turgor, no visible rashes or lesions. Source: Patient Exam Limitations: No limitations - Personal History Current Tetanus Diphtheria and Acellular Pertussis (TDAP): Yes - Medical/Surgical History Hx Asthma: No Hx Chronic Respiratory Disease: No Hx Diabetes: No Hx Cardiac Disease: No Hx Renal Disease: No Hx Cirrhosis: No Hx Alcoholism: No Hx HIV/AIDS: No Hx Splenectomy or Spleen Trauma: No Other PMH: 2 knee surgeries,cardiac stents, hemorrhoid sgy, 2 rotator cuff surg , foot and toe surgery, wrist surg - Family History Significant Family History: No pertinent family hx - Social History Smoking Status: Never smoked Alcohol Use: Sober Drug Use: None Constitutional: Initial Vital Signs Temperature (C) 37.1 C 01/22/18 13:48 Heart Rate 87 01/22/18 13:48 Respiratory Rate 16 01/22/18 13:48 Blood Pressure 92/56 L 01/22/18 13:48 O2 Sat (%) 96 01/22/18 13:48 O2 Delivery Mode Nasal Cannula Allergies/Adverse Reactions: SEASONAL Allergy (Mild, Uncoded 02/24/14 13:53) Other-Enter Comments Home Medications: Medication Instructions Recorded Aspirin [Aspirin 81mg (*)] 81 mg PO HS 10/20/14 Herbals/Supplements -Info Only 1 ea PO DAILY 10/20/14 Metoprolol Succinate Xr [Toprol Xl 25 mg PO BID 10/20/14 25 mg (*)] Multivitamins,Ther W-Minerals 1 each PO DAILY 10/20/14 [Therapeutic Vitamin W-Minerals] [place]-3 Fatty Acids [Fish Oil 1000 2,000 mg PO DAILY 10/20/14 mg (*)] Primidone [Mysoline] 50 mg PO BID 10/20/14 Rosuvastatin Calcium 40 mg PO HS 10/23/16 Valsartan [Diovan (*)] 160 mg PO DAILY 10/23/16 Cholecalciferol Vit D3 [Vitamin D3 2,000 units PO DAILY 12/05/16 (*)] Niacin [Niacin 500 mg (*)] 2,000 mg PO HS 12/05/16 [place]-3 Fatty Acids [Fish Oil 1000 1,000 mg PO HS 09/02/17 mg (*)] Ticagrelor [Brilinta] 60 mg PO BID 09/02/17 Flecainide Acetate 50 mg PO BID 01/22/18 Acetaminophen [Tylenol ES 500 mg 1,000 mg PO Q8 tab 01/23/18 (*)] Medical Decision Making - Diagnostics EKG Interpretation: An EKG obtained and was read and documented in trace view. Please see trace view for full reading and report. Sinus rhythm, no acute ischemic changes Imaging: Discussed imaging studies w/ senior construction project manager Radiologist Procedures: Procedure: Splint placement. A left leg posterior splint was applied. After application of the splint I returned and re-examined the patient. The splint was adequately immobilizing the joint and distal to the splint the patient's circulation and sensation was intact. ED Course/Re-evaluation: 2:15 p.m. I discussed the case with Dr. Barnhart who will admit. Will place a splint for comfort. Differential Diagnosis: Partial list of the Differential diagnosis considered include but were not limited to; fracture, dislocation and although unlikely based on the history and physical exam, I also considered infection, vascular injury, nerve injury. - Data Points Laboratory Results: Laboratory Results 01/22/18 14:08 Medications Given: Discontinued Medications Acetaminophen (Tylenol) 1,000 mg PO Q8 NAOMI Stop: 07/21/18 14:44 Last Admin: 01/23/18 05:28 Dose: 1,000 mg Aspirin Buffered (Aspirin Ec) 81 mg PO DAILY NAOMI Stop: 07/22/18 10:14 Last Admin: 01/23/18 10:17 Dose: 81 mg Cholecalciferol (Vitamin D) 2,000 units PO DAILY NAOMI Stop: 07/22/18 08:59 Last Admin: 01/23/18 07:43 Dose: 2,000 units Enoxaparin Sodium (Lovenox) 40 mg SC DAILY NAOMI Stop: 07/22/18 08:59 Last Admin: 01/23/18 10:00 Dose: Not Given Flecainide Acetate (Tambocor) 50 mg PO BID NAOMI Stop: 07/22/18 08:59 Last Admin: 01/23/18 10:00 Dose: Not Given Hydromorphone HCl (Dilaudid) 1 mg IVP EDNOW ONE Stop: 01/22/18 14:19 Last Admin: 01/22/18 14:25 Dose: 1 mg Metoprolol Succinate (Toprol Xl) 25 mg PO BID [facility] Stop: 07/22/18 08:59 Last Admin: 01/23/18 07:42 Dose: Not Given Multivitamins/Minerals (Thera M Plus Tablet) 1 each PO DAILY NAOMI Stop: 07/22/18 08:59 Last Admin: 01/23/18 07:43 Dose: 1 each Qqytc-4-Rrru Ethyl Esters (Fish Oil) 2,000 mg PO DAILY NAOMI Stop: 07/22/18 08:59 Last Admin: 01/23/18 07:44 Dose: 2,000 mg Valsartan (Diovan) 160 mg PO DAILY [facility] Stop: 07/22/18 08:59 Last Admin: 01/23/18 07:43 Dose: 160 mg Departure - Departure Disposition: [facility] In[facility] Acute Clinical Impression: Femur fracture, left Qualifiers: Encounter type: initial encounter Femur location: unspecified portion of femur Fracture type: closed Fracture morphology: unspecified fracture morphology Qualified Code(s): S72.92XA - Unspecified fracture of left femur, initial encounter for closed fracture Condition: Good
[2018-01-22] MEDS ORDERED: HYDROmorphONE/DILAUDID 2 MG/ML INJ IVP ONE (14:18)
[2018-01-22] MEDS ORDERED: ONDANSETRON DISINTEGRATING 4 MG TAB PO PRN (14:37)
[2018-01-22] MEDS ORDERED: oxyCODONE IR 5 MG TAB PO PRN (14:37)
[2018-01-22] MEDS ORDERED: ONDANSETRON 4 MG/2 ML VIAL IVP PRN (14:37)
--- NOTE | 2018-01-22 15:00 | CPEKG ---
Heart Rate: 76 RR Interval: 789 P-R Interval: 140 QRSD Interval: 94 QT Interval: 388 QTC Interval: 437 P [place]: 81 QRS [place]: 68 T Wave [place]: 59 EKG Severity - NORMAL ECG - EKG Impression: SINUS RHYTHM Electronically Signed By: Festus Hernandez 22-Jan-2018 15:01:11
--- NOTE | 2018-01-22 15:05 | GHP ---
[f rep st] HISTORY AND PHYSICAL DATE OF ADMISSION: 01/22/2018 HISTORY OF PRESENT ILLNESS: Mr. Mcguire is a 77-year-old gentleman with history knee replacement and coronary artery disease with stents who was walking his dog. He tried to drop the drainage ditch and he slipped on the wet weather, landing on cement. He had a great deal of pain in his leg. He denie s hitting his head, although he does not particularly recall. Currently is not complaining of headach e. He did not have palpitations or loss of consciousness prior to this purely mechanical fall. He t akes dual antiplatelet, but does not take a blood thinner. He was able to walk but really described it more as hobbling. He saw his Dr. Grover, his orthopedist, with x-rays which were indeterminate. The CT imaging found a v ertical condyle fracture of the femur. REVIEW OF SYSTEMS: A complete 10-point review of systems conducted, negative except as noted in the HPI. PAST MEDICAL HISTORY: 1. Coronary artery disease, status post stent. He has never had MO. 2. Hyperlipidemia. 3. Hypertension. SOCIAL HISTORY: He is retired. No alcohol. No tobacco. Lives in [place]. FAMILY HISTORY: Parents . PHYSICAL EXAMINATION: VITAL SIGNS: Temperature 37.1, blood pressure 92/56, pulse 87, breathing 16 t imes a minute, 96% on room air. GENERAL: No acute distress. HEENT: Sclerae anicteric. Oropharynx alia ar. Mucous membranes moist. NECK: Supple without lymphadenopathy or JVD. LUNGS: Clear to auscult ation bilaterally. CARDIAC: Heart is S1, S2. ABDOMEN: Soft, nontender, nondistended. EXTREMITIES: Lower extremities, his left lower extremity is neurovascularly intact at the toes. His cast is being placed as I see him. His right lower extremity is without edema. LABORATORY: There are no labs. CT shows vertical condyle fracture. Images reviewed and interpreted by me, and discussed case Dr. Festus Hernandez. ASSESSMENT/PLAN: 77-year-old gentleman with mechanical fall, periprosthetic fracture or vertical con dyle fracture. 1. Fracture. This is to be managed by Dr. Grover who will see him. It is likely be nonoperative, but I will hold his dual antiplatelet. 2. Coronary disease. The patient is able to achieve greater than 4 mets and he will proceed to the operating room without further workup or intervention. 3. Hypertension. Continue his medications. 4. Hyperlipidemia. Continue his medications. 5. Prophylaxis, high risk, low-molecular weight heparin. /[id number]/MODL
[2018-01-22] MEDS: ACETAMINOPHEN 500 MG TAB PO SCH ×2 (15:56→21:57)
--- NOTE | 2018-01-22 18:15 | SOAPPROG ---
SOAP Progress Note Assessment/Plan: Assessment: 01/22/18, Left knee medial femoral condyle fracture, near TKA. Splinted, pain controlled. I think the TKA should be stable Plan: 01/22/18 18:13 TDWB, pain and edema controll, polarcare, mobilize gradually as tolerated Objective: Vital Signs Temp Pulse Resp BP Pulse Ox 36.6 C 68 18 113/71 96 01/22/18 15:24 01/22/18 15:24 01/22/18 15:24 01/22/18 15:24 01/22/18 15:24 01/21/18 01/22/18 01/23/18 05:59 05:59 05:59 Intake Total 500 Output Total 300 Balance 200 ICD10 Worksheet Patient Problems: Problems Problem Status Onset Femur fracture, left Acute Internal bleeding hemorrhoids Acute
[2018-01-23] MEDS: ACETAMINOPHEN 500 MG TAB PO SCH (05:28)
[2018-01-23 07:16] VITALS: BP 115/61
[2018-01-23] MEDS ORDERED: PRIMIDONE 50 MG TAB PO SCH (09:00)
[2018-01-23] MEDS ORDERED: ENOXAPARIN 40 MG/0.4 ML SYR SC SCH (09:00)
[2018-01-23] MEDS ORDERED: OMEGA-3 FATTY ACIDS 1,000 MG CAP PO SCH ×2 (09:00→21:00)
[2018-01-23] MEDS ORDERED: MULTIVITAMINS W-MINERALS 1 EACH TAB PO SCH (09:00)
[2018-01-23] MEDS ORDERED: CHOLECALCIFEROL VIT D3 1,000 UNITS TAB PO SCH (09:00)
[2018-01-23] MEDS ORDERED: FLECAINIDE ACETATE 100 MG TAB PO SCH (09:00)
[2018-01-23] MEDS ORDERED: METOPROLOL SUCCINATE XR 25 MG TAB PO SCH (09:00)
[2018-01-23] MEDS ORDERED: VALSARTAN 160 MG TAB PO SCH (09:00)
--- NOTE | 2018-01-23 10:03 | SOAPPROG ---
SOAP Progress Note Assessment/Plan: Assessment: Awake and alert. Moderate pain. Splint OK. Plan:DC today on ASA. Use splint for approx [address] Grover in the office next Sun or . 01/23/18 10:02 Objective: Vital Signs Temp Pulse Resp BP Pulse Ox 36.7 C 67 14 115/61 94 01/23/18 07:15 01/23/18 07:42 01/23/18 07:15 01/23/18 07:43 01/23/18 07:15 Laboratory Results 01/23/18 04:58 01/22/18 01/23/18 01/24/18 05:59 05:59 05:59 Intake Total 800 Output Total 1125 Balance -325 ICD10 Worksheet Patient Problems: Problems Problem Status Onset Femur fracture, left Acute Internal bleeding hemorrhoids Acute
[2018-01-23] MEDS ORDERED: ASPIRIN EC 81 MG TAB PO SCH (10:15)
--- NOTE | 2018-01-23 12:04 | ASMTCMCOM ---
CM Note CM Note Notes: Pt fell while walking dog, has a femur fracture but able to bear light weight. Pt cleared by PT, will dc home w/support of friends/family. DC Plan: Independent Date Signed: 01/23/2018 12:03 PM Electronically Signed By:Gudelia Pineda RN
--- NOTE | 2018-01-23 12:05 | ASMTLACE ---
LONIE Length of stay for Answers: 1 day current admission Acuity / Level of Answers: Yes Care: Did the patient have an inpatient admission? Comorbidities - select Answers: Coronary Artery Disease all that apply Other Notes: HLD, HTN # of Emergency department Answers: 1-2 visits in the last 6 months Score: 8 Date Signed: 01/23/2018 12:04 PM Electronically Signed By:Gudelia Pineda RN
--- NOTE | 2018-01-23 15:04 | GDS ---
[f rep st] DISCHARGE SUMMARY DISCHARGE DIAGNOSIS: Left knee medial femoral chondral fracture. CONSULTATIONS: Dr. Grover of Orthopedics. STUDIES AND PROCEDURES DONE: CT of the left lower extremity. PHYSICAL EXAM: GENERAL: The patient is alert. VITAL SIGNS: Afebrile at 36.7, pulse 69, respirator y rate is 14, blood pressure is 115/61. He is saturating 94% on room air. I have seen and evaluated the patient on the day of discharge. HOSPITAL COURSE: The patient is a 77-year-old male who presented to the emergency room after complai nts of pain and fall. He was evaluated and diagnosed with: 1. Nonoperative left knee medial femoral condyle fracture. He did receive a consultation during thi s hospitalization from Orthopedics. The fracture has been splinted. He will continue with this spli nt and follow up in the outpatient setting with Orthopedics. 2. History of coronary artery disease. This appears to be stable. 3. Hypertension. His current medications have been continued. 4. Hyperlipidemia. Again, his medications have been continued. DISPOSITION: The patient will be discharged home independently. DISCHARGE MEDICATIONS: Please refer to EMR form. I have added aspirin to the patient's home regimen . Other changes have not been made at the time of disposition to the best of my knowledge. FOLLOWUP: With Dr. Grover, as well as Dr. Marshall. /[id number]/MODL
[2018-01-23] MEDS ORDERED: NIACIN 500 MG TAB PO SCH (21:00)
[2018-01-23] MEDS ORDERED: ROSUVASTATIN CALCIUM 40 MG TAB PO SCH (21:00)
== END 2018-01-23 12:01 | disposition home or self-care (01) ==
LOC: OBSVTOIN 14:19 → INTOOBSV 14:19 → F3N 15:08 → EDSTATUS 18:00
PROVIDERS: ADMIT Internal Medicine; ATTEND Hospitalist
PROC: 2W3MX1Z Immobilization of Left Lower Extremity using Splint (ICD-10-PCS; principal; 2018-01-22)
DX: S72.435A Nondisplaced fracture of medial condyle of left femur, initial encounter for closed fracture (principal); I25.10 Atherosclerotic heart disease of native coronary artery without angina pectoris; I10 Essential (primary) hypertension; E78.5 Hyperlipidemia, unspecified; W01.0XXA Fall on same level from slipping, tripping and stumbling without subsequent striking against object, initial encounter; Y93.K1 Activity, walking an animal; Y99.8 Other external cause status; Y92.9 Unspecified place or not applicable; Z96.652 Presence of left artificial knee joint; Z95.5 Presence of coronary angioplasty implant and graft
CPT/HCPCS: 29505; 73700; 92523; 93005; 97161; 97165; 99285; G0378; G8987; G8988; G8989; J1170; J1650